=== PATIENT | male | born 2000 | race Hispanic/Latino ===

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

== ENCOUNTER 2021-08-15 10:17 | Emergency (ER) | payer OTHER, SELFPAY | END 2021-08-15 10:45 | disposition home or self-care (01) | LOC: ERS 10:17 | DX: S01.80XD Unspecified open wound of other part of head, subsequent encounter (principal) ==